=== PATIENT | female | born 1995 | race Caucasian/White ===

== ENCOUNTER 2017-09-24 21:04 | Emergency (ER) | payer OTHER ==
[~2017-09-24] VITALS: Ht 154.9 cm; Wt 55.8 kg
[2017-09-24 21:09] VITALS: TEMP 36.8; Ht 154.9 cm; Wt 55.8 kg
--- NOTE | 2017-09-24 21:27 | EMERGENCY ROOM VISIT NOTE ---
History Report prepared by Michael: Chary Alvarado Under the Supervision of: Dr. Warren Howard D.O. First contact with patient: 21:16 Chief Complaint: URINARY SYMPTOMS Stated Complaint: PAIN,URINATION DISCOMFORT, History of Present Illness The patient is a 22 year old female who presents to the Emergency Room with complaints of constant urinary symptoms beginning this morning. The patient states that she has been having back pain, dysuria, and some pelvic pain. She reports that she has 2 sons that are 4 and 1 year old and she has had 1 miscarriage. She notes that she is currently but has not had her first appointment. The patient reports that her last period was at the end of July. She denies any fever, nausea, vomiting, leg swelling, and vaginal bleeding. Source of History: patient Onset: today Position: other (urinary) Quality: other (dysuria) Timing: constant Associated Symptoms: + abdominal pain, No fevers, No nausea, No vomiting Note: Pt denies leg swelling and vaginal bleeding. Review of Systems See HPI for pertinent positives & negatives. A total of 10 systems reviewed and were otherwise negative. Family History No pertinent family history stated. Social History Smoking Status: Never Smoker Marital Status: Housing Status: lives with family Occupation Status: employed Current/Historical Medications Scheduled Cephalexin Monohydrate (Keflex), 500 MG PO QID Physical Exam Vital Signs Date Time Temp Pulse Resp B/P (MAP) Pulse Ox O2 Delivery O2 Flow Rate FiO2 09/24/17 23:10 91 20 130/81 99 Room Air 09/24/17 21:09 36.8 103 18 123/84 98 Room Air Physical Exam GENERAL: Patient is awake, alert, and in no acute distress. Patient is resting comfortably and showing no signs of anxiety EYES: The conjunctivae are clear. The pupils are round and reactive. EARS, NOSE, MOUTH AND THROAT: The nose is without any evidence of any deformity. Mucous membranes are moist tongue is midline NECK: The neck is nontender and supple. RESPIRATORY: Normal respiratory effort is noted there is no evidence of wheezing rhonchi or rales CARDIOVASCULAR: Regular rate and rhythm noted there no murmurs rubs or gallops normal S1 normal S2 GASTROINTESTINAL: The abdomen is soft. Bowel sounds are present in all quadrants. Abdomen is nontender BACK: No midline tenderness or or step-off noted range of motion in flexion extension as well as rotation no signs of muscle spasm noted MUSCULOSKELETAL/EXTREMITIES: There is no evidence of gross deformity full range of motion is noted in the hips and shoulders SKIN: There is no obvious evidence of any rash. There are no petechiae, pallor or cyanosis noted. NEUROLOGIC: Patient is awake alert and oriented x3 Medical Decision & Procedures ER Provider Diagnostic Interpretation: <14 WKS SINGLE CLINICAL HISTORY: Pain. . COMPARISON STUDY: No previous studies for comparison. TECHNIQUE: Sonography of the pelvis was performed. FINDINGS: Intrauterine gestational sac is noted. This contains a yolk sac that measures 3.5 mm in size. A suspected pole is noted with a crown-rump length of 2.5 mm. Estimated gestational age of 5 weeks and 6 days. Equivocal cardiac activity was identified.. A 1.1 x 0.5 x 1.1 cm suspected subchorionic hematoma was noted. The right ovary was normal. There was a 2.2 cm left ovarian corpus luteal cyst. There was no free fluid. IMPRESSION: 1. Intrauterine gestational sac which contains a yolk sac and suspected pole with equivocal cardiac activity. Estimated gestational age of 5 weeks and 6 days. The findings suggest a normal early intrauterine gestation. Suspected small subchorionic hematoma. Sonographic follow up is recommended. 2. 2.2 cm left ovarian corpus luteal cyst. Electronically signed by: Sami Keating M.D. 09/24/2017 11:10 PM Laboratory Results 09/24/17 21:36 Red Blood Count 4.50, Mean Corpuscular Volume 87.1, Mean Corpuscular Hemoglobin 30.2, Mean Corpuscular Hemoglobin Concent 34.7, Mean Platelet Volume 9.0, Neutrophils (%) (Auto) 58.1, Lymphocytes (%) (Auto) 31.9, Monocytes (%) (Auto) 8.7, Eosinophils (%) (Auto) 0.6, Basophils (%) (Auto) 0.4, Neutrophils # (Auto) 6.05, Lymphocytes # (Auto) 3.31, Monocytes # (Auto) 0.90, Eosinophils # (Auto) 0.06, Basophils # (Auto) 0.04 09/24/17 21:36 Test 09/24/17 21:20 09/24/17 21:36 Urine Color YELLOW Urine Appearance CLEAR (CLEAR) Urine pH 5.0 (4.5-7.5) Urine Specific [place] 1.013 (1.000-1.030) Urine Protein NEG (NEG) Urine Glucose (UA) NEG (NEG) Urine Ketones NEG (NEG) Urine Occult Blood NEG (NEG) Urine Nitrite NEG (NEG) Urine Bilirubin NEG (NEG) Urine Urobilinogen NEG (NEG) Urine Leukocyte Esterase MODERATE (NEG) Urine WBC (Auto) 10-30 /hpf (0-5) Urine RBC (Auto) 0-4 /hpf (0-4) Urine Hyaline Casts (Auto) 0 /lpf (0-5) Urine Epithelial Cells (Auto) 20-30 /lpf (0-5) Urine Bacteria (Auto) NEG (NEG) White Blood Count 10.39 K/uL (4.8-10.8) Red Blood Count 4.50 M/uL (4.2-5.4) Hemoglobin 13.6 g/dL (12.0-16.0) Hematocrit 39.2 % (37-47) Mean Corpuscular Volume 87.1 fL (80-100) Mean Corpuscular Hemoglobin 30.2 pg (25-34) Mean Corpuscular Hemoglobin Concent 34.7 g/dl (32-36) Platelet Count 339 K/uL (130-400) Mean Platelet Volume 9.0 fL (7.4-10.4) Neutrophils (%) (Auto) 58.1 % Lymphocytes (%) (Auto) 31.9 % Monocytes (%) (Auto) 8.7 % Eosinophils (%) (Auto) 0.6 % Basophils (%) (Auto) 0.4 % Neutrophils # (Auto) 6.05 K/uL (1.4-6.5) Lymphocytes # (Auto) 3.31 K/uL (1.2-3.4) Monocytes # (Auto) 0.90 K/uL (0.11-0.59) Eosinophils # (Auto) 0.06 K/uL (0-0.5) Basophils # (Auto) 0.04 K/uL (0-0.2) RDW Standard Deviation 44.2 fL (36.4-46.3) RDW Coefficient of Variation 13.8 % (11.5-14.5) Immature Granulocyte % (Auto) 0.3 % Immature Granulocyte # (Auto) 0.03 K/uL (0.00-0.02) Anion Gap 10.0 mmol/L (3-11) Est Creatinine Clear Calc Drug Dose 116.8 ml/min Estimated GFR () > 150.0 Estimated GFR (Non- 130.5 BUN/Creatinine Ratio 15.7 (10-20) Calcium Level 9.5 mg/dl (8.5-10.1) Total Bilirubin 0.6 mg/dl (0.2-1) Aspartate Amino Transf (AST/SGOT) 12 U/L (15-37) Alanine Aminotransferase (ALT/SGPT) 16 U/L (12-78) Alkaline Phosphatase 70 U/L (45-117) Total Protein 8.0 gm/dl (6.4-8.2) Albumin 4.3 gm/dl (3.4-5.0) Globulin 3.7 gm/dl (2.5-4.0) Albumin/Globulin Ratio 1.2 (0.9-2) Human Chorionic Gonadotropin, Quant 5769 mIU/mL Laboratory results per my review. Medications Administered Medications (Trade) Dose Ordered Sig/Christelle Route Start Time Stop Time Status Last Admin Dose Admin Cephalexin Monohydrate (Keflex 500MG Home Pack) 1 homepack NOW ONCE PO 09/24/17 21:30 09/24/17 21:31 DC 09/24/17 21:50 1 HOMEPACK Cephalexin Monohydrate (Keflex Cap) 500 mg NOW ONCE PO 09/24/17 21:30 09/24/17 21:31 DC 09/24/17 21:50 500 MG ED Course 2115: The patient was evaluated in room B9. A complete history and physical examination were performed. 2129: Keflex Cap 500mg PO, Keflex 500mg Home Pack 1 homepack PO. Medical Decision Differential diagnosis: Etiologies such as ectopic , dysfunction uterine bleeding, bleeding dyscrasia, trauma, infection, as well as others were entertained. Nursing notes reviewed. The patient is a 22-year-old female who presented to emergency department for evaluation of dysuria and frequency. The patient states her last menstrual period was in July. Bedside ultrasound revealed a sac but no definite pull. For this reason a formal ultrasound was ordered as well as laboratory studies. She was found have signs of urinary tract infection on urinalysis and was started on antibiotic. She did not have a physical exam consistent with an acute surgical abdomen. She did not have vaginal bleeding or discharge. I discussed the patient's laboratory and radiographic studies with her. She was encouraged to continue all medications as prescribed and call her primary [facility] physician to schedule follow-up.. Otherwise she was encouraged to return to the emergency department immediately symptoms change worsen or the need arises. Medication Reconcilliation Current Medication List: was personally reviewed by me Blood Pressure Screening Patient's blood pressure: Normal blood pressure Blood pressure disposition: Did not require urgent referral Impression Primary Impression: First trimester Additional Impression: UTI (urinary tract infection) Scribe Attestation The scribe's documentation has been prepared under my direction and personally reviewed by me in its entirety. I confirm that the note above accurately reflects all work, treatment, procedures, and medical decision making performed by me. Departure Information Prescriptions Cephalexin Monohydrate (KEFLEX) 500 Mg Cap 500 MG PO QID, #28 CAP Prov: Warren Howard, DO 09/24/17 Referrals Francis Gates M.D. (PCP) Patient Instructions My [facility] Problem Qualifiers Additional Impression: UTI (urinary tract infection) Urinary tract infection type: site unspecified Hematuria presence: without hematuria Qualified Codes: N39.0 - Urinary tract infection, site not specified
[2017-09-24] MEDS ORDERED: CEPHALEXIN 500MG HOME PACK 1 EA BTL PO ONE (21:30)
[2017-09-24] MEDS ORDERED: CEPHALEXIN MONOHYDRATE 250 MG CAP PO ONE (21:30)
[2017-09-24 21:39] LABS: URINE APPEARANCE CLEAR (CLEAR); URINE BILIRUBIN NEG (NEG); URINE COLOR YELLOW; URINE EPITHELIAL CELL AUTO 20-30 /lpf (0-5); URINE NITRITE NEG (NEG); URINE SPECIFIC GRAVITY 1.013 (1.000-1.030); UROBILINOGEN NEG (NEG)
[2017-09-24 21:41] LABS: MANUAL MICROSCOPIC REQUIRED? NO; REVIEW REQ? NO
[2017-09-24 21:54] LABS: BASO % 0.4 %; BASO ABS # 0.04 K/uL (0-0.2); COMPLETE YES; EOS % 0.6 %; HEMATOCRIT 39.2 % (37-47); IG% 0.3 %; LYMPH % 31.9 %; LYMPH ABS # 3.31 K/uL (1.2-3.4); MEAN CELL VOLUME 87.1 fL (80-100); MEAN CORPUSCULAR HEMOGLOBIN 30.2 pg (25-34); MEAN CORPUSCULAR HGB CONC 34.7 g/dl (32-36); MONO % 8.7 %; NEUT % 58.1 %; PLATELET COUNT 339 K/uL (130-400); WHITE BLOOD COUNT 10.39 K/uL (4.8-10.8)
[2017-09-24 22:12] LABS: ALT/SGPT 16 U/L (12-78); BLOOD UREA NITROGEN 9 mg/dl (7-18); BUN/CREATININE RATIO 15.7 (10-20); CALCIUM 9.5 mg/dl (8.5-10.1); CARBON DIOXIDE 22 mmol/L (21-32); CHLORIDE 104 mmol/L (98-107); CREATININE 0.56 mg/dl (0.60-1.20); GLUCOSE 87 mg/dl (70-99); POTASSIUM 3.3 mmol/L (3.5-5.1); SODIUM 136 mmol/L (136-145)
[2017-09-24 22:15] LABS: ALB/GLOB RATIO 1.2 (0.9-2); ALKALINE PHOSPHATASE 70 U/L (45-117); AST/SGOT 12 U/L (15-37)
[2017-09-24] MEDS ORDERED: CEPH500C2 PO (22:47)
[2017-09-24 23:10] VITALS: BP 130/81; PULSE 91; O2SAT 99
--- NOTE | 2017-09-24 23:12 | DIAGNOSTIC IMAGING REPORT ---
<14 WKS SINGLE CLINICAL HISTORY: Pain. . COMPARISON STUDY: No previous studies for comparison. TECHNIQUE: Sonography of the pelvis was performed. FINDINGS: Intrauterine gestational sac is noted. This contains a yolk sac that measures 3.5 mm in size. A suspected pole is noted with a crown-rump length of 2.5 mm. Estimated gestational age of 5 weeks and 6 days. Equivocal cardiac activity was identified.. A 1.1 x 0.5 x 1.1 cm suspected subchorionic hematoma was noted. The right ovary was normal. There was a 2.2 cm left ovarian corpus luteal cyst. There was no free fluid. IMPRESSION: 1. Intrauterine gestational sac which contains a yolk sac and suspected pole with equivocal cardiac activity. Estimated gestational age of 5 weeks and 6 days. The findings suggest a normal early intrauterine gestation. Suspected small subchorionic hematoma. Sonographic follow up is recommended. 2. 2.2 cm left ovarian corpus luteal cyst. Electronically signed by: Sami Keating M.D. 09/24/2017 11:10 PM Dictated Date/Time: 09/24/2017 11:04 PM
== END 2017-09-24 23:40 | disposition home or self-care (01) ==
LOC: C.EDB 21:06
DX: O23.41 Unspecified infection of urinary tract in pregnancy, first trimester (principal); Z87.59 Personal history of other complications of pregnancy, childbirth and the puerperium

== ENCOUNTER 2021-05-05 07:09 | Inpatient (IN) ==
[2021-05-05] MEDS ORDERED: OXYTOCIN 30 UNITS/500 ML BAG IV PRN ×2 (07:41)
[2021-05-05] MEDS: LACTATED RINGER'S 1,000 ML IV PRN ×5 (07:57→22:23)
[2021-05-05] MEDS ORDERED: ePHEDrine sulfate 50 MG/ML AMP ONE (08:02)
[2021-05-05] MEDS ORDERED: fentaNYL citrate 100 MCG/2 ML VIAL ONE (08:02)
[2021-05-05] MEDS ORDERED: SODIUM CHLORIDE 0.9% INJ 10 ML VIAL ONE (08:02)
[2021-05-05] MEDS ORDERED: BUPIVACAINE 0.25% 30 ML VIAL ONE (08:02)
[2021-05-05] MEDS ORDERED: fentaNYL 2MCG/ML ROPIVACAINE 1.25MG/ML 100 ML BAG EPI ONE (08:03)
--- NOTE | 2021-05-05 08:10 | History & Physical Report ---
Date of Service May 05, 2021 Assessment & Plan (1) Encounter for supervision of normal in multigravida, antepartum: Plan: Patient is stable, doing well -NPO, except ice chips -IV (LR, pit, epidural) as needed -FHTs -review CBC results -Rh+, RI, GBS- -anticipate (2) Encounter for anatomic survey: Admission and Anticipated Discharge Date Admission Date: May 05, 2021 History of Present Illness Primary Care Provider: NO PCP Aiyana Mendez is a 25 y/o female currently at 40.4 WGA with an SHARI 05/01/21 as determined by LMP who is here for IOL for postterm . Her is complicated by a history of anemia and pelvic separation during her previous . + contractions; + movement; no fluid loss; no bloody show Had regular appointments with OB. Labs: today Blood type: O Positive Antibody screen: negative H.9 Hct: 38.5 WBC: 10.9 Plt: 188 Rubella: immune VDRL/RPR: nonreactive Gonorrhea: negative Chlamydia: negative HIV: negative HbSAg: negative GBS: negative Other screens: cff-DNA: negative CF: declined SMA: declined Allergies Allergy/AdvReac Type Severity Reaction Status Date / Time No Known Allergies Allergy Verified 05/05/21 07:53 Home Medications Medication Instructions Recorded Confirmed Type prenat.vits,moose,fhk-ecgg-ntjmb 1 tab PO DAILY 09/15/20 05/05/21 History Patient History Medical History Ovarian cyst resolved Surgical History S/P tonsillectomy and adenoidectomy Family History Aunt Colorectal cancer Other Asthma Heart disease Denies family history of Ovarian cancer Breast cancer Social History Smoking Status: Never smoker Second Hand Exposure: No; Hx Alcohol Use: No Hx Substance Use: No Preferred Language: Albanian Communication Ability: Effective Beliefs That Will Affect Care: None marital status: marital status details: Ernesto (33) [phone] Current Living Situation: Family Current Living Situation Comment: and 2 boys current occupational status: employed current occupation: [employer] Feels Safe at Home: Yes Safety Concerns: Feels Safe At This Time Assistive Devices: None Review of Systems All systems reviewed & are unremarkable except as noted in HPI & below Physical Exam Physical Exam: General: Alert, oriented. No acute distress. Cardiac: Regular rate and rhythm, no murmurs/rubs/gallops. Respiratory: Clear to auscultation bilaterally a/p, no wheezes/rales/rhonchi. No increased work of breathing. Symmetrical chest rise. No respiratory distress. Pelvic: Dilation 4 cm; Effacement 50; Station -[address] Amaya Lower Extremities: No lower extremity edema or swelling. No deep calf pain. Zaki's negative bilaterally Results & Data ([facility]) Vital Signs (Past 12 Hours) Vital Signs Temp Pulse Resp BP 05/05/21 07:32 36.5 C 20 05/05/21 07:24 85 99/62 L Resident Activity Tracking Resident Involvement: Resident Care Provided Care Provided: OB Delivery
[2021-05-05 08:19] LABS: Hematocrit (blood only) 38.5 % (37-47); Hemoglobin 12.9 g/dL (12.0-16.0); Mean Corpuscular Hemoglobin 32.1 pg (25-34); Mean Corpuscular Hgb Conc 33.5 g/dL (32-36); Mean Corpuscular Volume 95.8 fL (80-100); Mean Platelet Volume 10.7 fL (7.4-10.4); Platelet Count 188 K/uL (130-400); RDW Standard Deviation 48.9 fL (36.4-46.3); Red Blood Count 4.02 M/uL (4.2-5.4)
[2021-05-05] MEDS ORDERED: diphenhydrAMINE 50 MG/ML VIAL IV PRN ×2 (09:42→18:54)
[2021-05-05] MEDS ORDERED: ePHEDrine sulfate 50 MG/ML AMP IV PRN ×2 (09:42→18:54)
[2021-05-05] MEDS ORDERED: NALOXONE HCL 0.4 MG/1 ML VIAL/CARP IV PRN ×2 (09:42→18:54)
[2021-05-05] MEDS ORDERED: ONDANSETRON INJ 2 MG/ML 2 ML VIAL IV PRN ×2 (09:42→18:54)
[2021-05-05] MEDS ORDERED: PROMETHAZINE HCL 6.25 MG in SODIUM CHLORIDE 0.9% 50 ML IV PRN ×2 (09:42→18:54)
[2021-05-05] MEDS ORDERED: NALBUPHINE HCL INJ 10 MG/ML AMP IV PRN ×2 (09:42→18:54)
[2021-05-05] MEDS ORDERED: NALOXONE HCL 1 MG in SODIUM CHLORIDE 0.9% 1000ML 1,000 ML IV PRN ×2 (09:42→18:54)
--- NOTE | 2021-05-05 09:42 | Anesthesiology Consultation ---
Date of Service May 05, 2021 Assessment & Plan (1) Encounter for pre-operative examination: Chart Review Chart Review: Patient NOT seen in Pre Admission Testing and Acceptable Risk for Labor Epidural Consults Requested none ASA ASA2 Proposed Anesthesia Anesthesia Type: Labor Epidural Risk / Benefits Reviewed With: PT / POA / Parent / Guardian, Accepts Plan and Informed Consent Obtained History Height/Weight Height: 5 ft Weight: 63.503 kg Allergies Allergy/AdvReac Type Severity Reaction Status Date / Time No Known Allergies Allergy Verified 05/05/21 07:53 Medications Home Medications Medication Instructions Recorded Confirmed Last Taken prenat.vits,moose,mdg-mfeh-eemql 1 tab PO DAILY 09/15/20 05/05/21 05/04/21 20:00 Active Medications Generic Name Dose Route Start Last Admin Trade Name Freq PRN Reason Stop Dose Admin Lactated Ringer's 1,000 mls @ 125 mls/hr 05/05/21 07:41 05/05/21 08:29 Lr IV 05/07/21 07:40 125 mls/hr .Q8H PRN Infusion L&D Protocol Protocol NPO Date Last Intake of Fluids: 05/05/21 Time Last Intake of Fluids: 06:00 Date Last Intake of Solids: 05/05/21 Time Last Intake of Solids: 06:00 Last Intake of Solids Comment: poptart Past Medical History Medical History Ovarian cyst resolved Exercise / Class Metabolic Activity II 4-5 Yardwork/Stairs/Walk up hill Past Family History Family History Aunt Colorectal cancer Other Asthma Heart disease Denies family history of Ovarian cancer Breast cancer Past Surgical History Surgical History S/P tonsillectomy and adenoidectomy Past Anesthesia History No Hx of Anesthesia Complications and No Family Hx of Anesthesia Complications History of PONV No Hx of PONV and No Hx of Motion Sickness Social History Smoking Status: Never smoker Hx Alcohol Use: No Hx Substance Use: No substance use type: does not use Physical Exam Vital Signs Last Vital Signs Temp 36.5 C 05/05/21 07:32 Pulse 100 H 05/05/21 09:39 Resp 20 05/05/21 07:32 BP 87/58 L 05/05/21 09:39 Pulse Ox 99 05/05/21 09:38 ENMT Mouth: no dentition abnormality Thyromental Distance: > or= 3.5 Finger Breadths Mallampati Class: II Neck normal visual inspection Respiratory normal respiratory effort Auscultation: lungs clear to auscultation bilaterally Cardiovascular Rate/Rhythm: regular rate and regular rhythm Psychiatric Orientation: alert Testing Laboratory Results 05/05/21 07:55
--- NOTE | 2021-05-05 10:46 | Labor Progress Brief Note ---
Date of Service May 05, 2021 Subjective Reason For Note: Routine Evaluation Comfortable with Epidural Assessment & Plan Admission and Anticipated Discharge Date Admission Date: May 05, 2021 Physical Exam Genitourinary: Manual OB Exam: + cervical dilation 5 cm, + cervical effacement 50%, + station -2 and + amniotic fluid clear OB Exam Monitor Tracing: + category I Results & Data ([facility]) Vital Signs (Past 12 Hours) Vital Signs Temp Pulse Resp BP Pulse Ox 05/05/21 10:43 120 H 100 05/05/21 10:42 104 H 87/57 L 05/05/21 10:38 86 100 05/05/21 10:37 84 107/66 05/05/21 10:33 68 99 05/05/21 10:32 91 H 92/60 L 05/05/21 10:28 92 H 99 05/05/21 10:25 88 97/64 L 05/05/21 10:23 93 H 99 05/05/21 10:20 78 99/62 L 05/05/21 10:18 102 H 98/61 L 100 05/05/21 10:13 100 H 96 05/05/21 10:10 110 H 95/64 L 05/05/21 10:08 74 100 05/05/21 10:07 83 102/66 05/05/21 10:03 103 H 98 05/05/21 10:01 99 H 93/61 L 05/05/21 09:58 100 H 98 05/05/21 09:56 93 H 99/59 L 05/05/21 09:53 108 H 110/68 99 05/05/21 09:51 73 114/78 05/05/21 09:49 200 H 97/68 L 05/05/21 09:48 75 100 05/05/21 09:47 106 H 98/72 L 05/05/21 09:45 126 H 91/57 L 05/05/21 09:44 104 H 100/61 05/05/21 09:43 102 H 97 05/05/21 09:42 106 H 89/62 L 05/05/21 09:41 110 H 87/59 L 05/05/21 09:39 100 H 87/58 L 05/05/21 09:38 96 H 99 05/05/21 09:37 100 H 90/55 L 05/05/21 09:36 75 95/61 L 05/05/21 09:33 95 H 99 05/05/21 09:32 87 105/71 05/05/21 09:28 79 99 05/05/21 09:24 76 112/74 05/05/21 09:23 83 100 05/05/21 07:32 97.7 F 20 05/05/21 07:24 85 99/62 L Coding Level of Care Code None
[2021-05-05] MEDS ORDERED: TERBUTALINE SULFATE 1 MG/ML VIAL ONE (11:00)
--- NOTE | 2021-05-05 11:41 | Labor Progress Brief Note ---
Date of Service May 05, 2021 Subjective Comfortable with epidural. Patient was seen and examined urgently, due to heart rate deceleration, which the nurses notified me of by phone while I was in my call room on 4N. Pit off, FMO2 on, RN's repositioning patient, bolus going, recent ephedrine had been given. Patient in L lateral on my arrival. FHT 60-70 x5min Small bloody show, Clear LOF continues to be copious. Exam /-2 Alongside head, a hand was encountered. With manipulation, it was noted to retract back into the uterus and the head seated firmly against the cervix once more. At no point was cord palpable. FSE placed without difficulty and confirmed FHT 60-70. Fuentes placed, OR ordered to be opened. Patient placed in knee chest and terbutaline 0.25mg given subcutaneously. Verbal consent for obtained from patient and FOB heart tones noted to begin improving Reassuring variability persisted as tones gradually john from 90s, low 100s, and ultimately settled in 150s. Patient repositioned L lateral and FHT remain Cat 1 OR cancelled Paper consent for completed in the event of future need, and to allow time for all questions / full unhurried consent process. Plan for NST and if remains reassuring can resume induction. Assessment & Plan Admission and Anticipated Discharge Date Admission Date: May 05, 2021 Results & Data ([facility]) Vital Signs (Past 12 Hours) Vital Signs Temp Pulse Resp BP Pulse Ox 05/05/21 11:31 123 H 96/54 L 05/05/21 11:28 114 H 100 05/05/21 11:24 107 H 95/53 L 05/05/21 11:23 96 H 100 05/05/21 11:18 131 H 100 05/05/21 11:13 129 H 103/54 L 100 05/05/21 11:08 110 H 99 05/05/21 11:06 126 H 89 L 05/05/21 11:03 128 H 91 05/05/21 11:02 88 128/70 05/05/21 10:59 90 90 05/05/21 10:58 86 100 05/05/21 10:57 85 126/59 L 05/05/21 10:53 82 100 05/05/21 10:51 72 139/78 05/05/21 10:49 64 126/81 07 10:48 64 100 05/05/21 10:46 62 93/66 L 05/05/21 10:43 120 H 100 05/05/21 10:42 104 H 87/57 L 05/05/21 10:38 86 100 05/05/21 10:37 84 107/66 05/05/21 10:33 68 99 05/05/21 10:32 91 H 92/60 L 05/05/21 10:28 92 H 99 05/05/21 10:25 88 97/64 L 05/05/21 10:23 93 H 99 05/05/21 10:20 78 99/62 L 05/05/21 10:18 102 H 98/61 L 100 05/05/21 10:13 100 H 96 05/05/21 10:10 110 H 95/64 L 05/05/21 10:08 74 100 05/05/21 10:07 83 102/66 05/05/21 10:03 103 H 98 05/05/21 10:01 99 H 93/61 L 05/05/21 09:58 100 H 98 05/05/21 09:56 93 H 99/59 L 05/05/21 09:53 108 H 110/68 99 05/05/21 09:51 73 114/78 05/05/21 09:49 200 H 97/68 L 05/05/21 09:48 75 100 05/05/21 09:47 106 H 98/72 L 05/05/21 09:45 126 H 91/57 L 05/05/21 09:44 104 H 100/61 05/05/21 09:43 102 H 97 05/05/21 09:42 106 H 89/62 L 05/05/21 09:41 110 H 87/59 L 05/05/21 09:39 100 H 87/58 L 05/05/21 09:38 96 H 99 05/05/21 09:37 100 H 90/55 L 05/05/21 09:36 75 95/61 L 05/05/21 09:33 95 H 99 05/05/21 09:32 87 105/71 05/05/21 09:28 79 99 05/05/21 09:24 76 112/74 05/05/21 09:23 83 100 05/05/21 07:32 97.7 F 20 05/05/21 07:24 85 99/62 L Coding Level of Care Code None
[2021-05-05] MEDS ORDERED: ACETAMINOPHEN 650 MG SUPP ONE (16:39)
--- NOTE | 2021-05-05 16:45 | Labor Progress Brief Note ---
Date of Service May 05, 2021 Subjective Feeling pressure, urge to push Assessment & Plan (1) Chorioamnionitis: Plan: Start unasyn, tylenol given, moving rapidly now towards delivery in multiparous female Admission and Anticipated Discharge Date Admission Date: May 05, 2021 Physical Exam Physical Exam: Shivers FHT 165, mod destinee, +early decels -acc [place] Q2 Cvx 9/100/+1 Temp 102F Rectal tylenol 650mg given after cervical exam Results & Data ([facility]) Vital Signs (Past 12 Hours) Vital Signs Temp Pulse Resp BP Pulse Ox 05/05/21 16:38 110 H 99 05/05/21 16:36 102.0 F H 05/05/21 16:34 101.7 F H 05/05/21 16:33 101 H 100 05/05/21 16:32 104 H 119/69 05/05/21 16:30 22 05/05/21 16:28 108 H 100 05/05/21 16:27 104 H 90 05/05/21 16:23 112 H 95 05/05/21 16:21 118 H 92 05/05/21 16:18 111 H 100 05/05/21 16:16 102 H 117/76 05/05/21 16:13 101 H 99 05/05/21 16:08 104 H 100 05/05/21 16:03 108 H 99 05/05/21 16:02 123 H 113/71 05/05/21 15:58 125 H 100 05/05/21 15:53 126 H 98 05/05/21 15:48 90 100 05/05/21 15:46 122 H 95/52 L 05/05/21 15:43 115 H 100 05/05/21 15:39 103 H 100/59 L 05/05/21 15:38 96 H 100 05/05/21 15:37 127 H 84/53 L 05/05/21 15:33 82 99 05/05/21 15:31 107 H 87/50 L 05/05/21 15:30 16 05/05/21 15:28 112 H 99 05/05/21 15:23 84 99 05/05/21 15:18 96 H 99 05/05/21 15:17 102 H 91/51 L 05/05/21 15:13 116 H 99 05/05/21 15:10 98.8 F 16 05/05/21 15:08 80 99 05/05/21 15:03 83 99 05/05/21 15:02 95 H 91/53 L 05/05/21 14:58 79 100 05/05/21 14:53 104 H 99 05/05/21 14:48 82 100 05/05/21 14:46 112 H 95/56 L 05/05/21 14:45 103 H 94 05/05/21 14:43 97 H 99 05/05/21 14:38 96 H 100 05/05/21 14:33 97 H 99 05/05/21 14:32 105 H 106/66 05/05/21 14:31 20 05/05/21 14:28 102 H 99 05/05/21 14:23 111 H 100 05/05/21 14:18 107 H 99 05/05/21 14:16 114 H 95/61 L 05/05/21 14:13 113 H 100 05/05/21 14:08 107 H 99 05/05/21 14:03 115 H 100 05/05/21 14:01 114 H 20 98/64 L 05/05/21 13:58 128 H 100 05/05/21 13:53 114 H 100 05/05/21 13:48 92 H 100 05/05/21 13:46 118 H 93/59 L 05/05/21 13:43 103 H 100 05/05/21 13:38 111 H 99 05/05/21 13:33 109 H 100 05/05/21 13:31 115 H 101/62 05/05/21 13:28 106 H 100 05/05/21 13:23 111 H 100 05/05/21 13:18 101 H 100 05/05/21 13:17 109 H 102/67 05/05/21 13:13 127 H 100 05/05/21 13:08 100 H 100 05/05/21 13:03 120 H 100 05/05/21 13:01 113 H 20 92/63 L 05/05/21 12:58 89 100 05/05/21 12:53 115 H 100 05/05/21 12:48 125 H 100 05/05/21 12:47 110 H 101/68 05/05/21 12:43 114 H 100 05/05/21 12:38 108 H 100 05/05/21 12:33 121 H 100 05/05/21 12:31 97.9 F 123 H 20 88/52 L 05/05/21 12:28 126 H 100 05/05/21 12:23 96 H 100 05/05/21 12:18 144 H 100 05/05/21 12:16 126 H 81/49 L 05/05/21 12:13 116 H 100 05/05/21 12:08 122 H 100 05/05/21 12:03 97 H 100 05/05/21 12:02 120 H 86/52 L 05/05/21 12:01 97.9 F 16 05/05/21 11:58 118 H 100 05/05/21 11:53 92 H 100 05/05/21 11:48 125 H 100 05/05/21 11:47 106 H 93/55 L 05/05/21 11:46 20 05/05/21 11:43 115 H 100 05/05/21 11:38 103 H 100 05/05/21 11:33 116 H 100 05/05/21 11:31 123 H 20 96/54 L 05/05/21 11:28 114 H 100 05/05/21 11:24 107 H 95/53 L 05/05/21 11:23 96 H 100 05/05/21 11:18 131 H 100 05/05/21 11:16 20 05/05/21 11:13 129 H 103/54 L 100 05/05/21 11:08 110 H 99 05/05/21 11:06 126 H 89 L 05/05/21 11:03 128 H 91 05/05/21 11:02 88 128/70 05/05/21 11:01 20 05/05/21 10:59 90 90 05/05/21 10:58 86 100 05/05/21 10:57 85 126/59 L 05/05/21 10:53 82 100 05/05/21 10:51 72 139/78 05/05/21 10:49 64 126/81 05/05/21 10:48 64 100 05/05/21 10:46 62 20 93/66 L 05/05/21 10:43 120 H 100 05/05/21 10:42 104 H 87/57 L 05/05/21 10:38 86 100 05/05/21 10:37 84 107/66 05/05/21 10:33 68 99 05/05/21 10:32 91 H 92/60 L 05/05/21 10:31 20 05/05/21 10:28 92 H 99 05/05/21 10:25 88 97/64 L 05/05/21 10:23 93 H 99 05/05/21 10:20 78 99/62 L 05/05/21 10:18 102 H 98/61 L 100 05/05/21 10:16 97.9 F 20 05/05/21 10:13 100 H 96 05/05/21 10:10 110 H 95/64 L 05/05/21 10:08 74 100 05/05/21 10:07 83 102/66 05/05/21 10:03 103 H 98 05/05/21 10:01 99 H 20 93/61 L 05/05/21 09:58 100 H 98 05/05/21 09:56 93 H 99/59 L 05/05/21 09:53 108 H 110/68 99 05/05/21 09:51 73 114/78 05/05/21 09:49 200 H 97/68 L 05/05/21 09:48 75 100 05/05/21 09:47 106 H 98/72 L 05/05/21 09:45 126 H 20 91/57 L 05/05/21 09:44 104 H 100/61 05/05/21 09:43 102 H 97 05/05/21 09:42 106 H 89/62 L 05/05/21 09:41 110 H 87/59 L 05/05/21 09:39 100 H 87/58 L 05/05/21 09:38 96 H 99 05/05/21 09:37 100 H 90/55 L 05/05/21 09:36 75 95/61 L 05/05/21 09:33 95 H 99 05/05/21 09:32 87 105/71 05/05/21 09:28 79 99 05/05/21 09:24 76 112/74 05/05/21 09:23 83 100 05/05/21 07:32 97.7 F 20 05/05/21 07:24 85 99/62 L Coding Level of Care Code None Diagnoses Chorioamnionitis O41.1290
[2021-05-05] MEDS ORDERED: AMPICILLIN/SULBACTAM SOD 3,000 MG in 0.9 % SODIUM CHLORIDE 100 ML IV ONE (17:00)
[2021-05-05] MEDS ORDERED: IBUPROFEN 600 MG TAB PO ONE (17:53)
--- NOTE | 2021-05-05 18:13 | Delivery Summary ---
Vaginal Delivery Summary Date of Service May 05, 2021 Vaginal Delivery Summary DIAGNOSES: 1. [place] intrauterine at 40w4d gestation. 2. Induction of Labor. 3. Group B Streptococcus Neg 4. Acute Chorioamnionitis. PROCEDURE: Spontaneous vaginal delivery complicated by mild shoulder dystocia, without laceration. SURGEON: Sangeetha Jennings MD. SOFTWARE VALIDATION ENGINEER: None. ESTIMATED BLOOD LOSS: 300 mL. COMPLICATIONS: Mild Dystocia. PLACENTA: Spontaneous and intact with a 3-vessel cord. DISPOSITION: Stable to labor and delivery. DESCRIPTION: The patient pushed well and brought the head to in CHRISTIN position. The 's head was allowed to deliver with contraction force and no further active pushing, with the perineum protected during this time. There was a tight nuchal cord reduced on the perineum. The right shoulder was anterior. The shoulders did not deliver with the next push, so mom was placed in Aviva position, coached through several additional pushes while suprapubic pressure was applied, and still the shoulder did not deliver, however the infant was noted to begin rotating. This rotation was encouraged, creating a screw maneuver, and ultimately delivered after 360 degrees of rotation. The cord was doubly clamped by the MD and then cut by the FOB. The placenta delivered spontaneously and was noted to be intact and with a 3VC. The cervix, vagina and perineum were examined and were found to be without defect requiring repair. The fundus was firm and lochia minimal immediately after delivery. [facility] Vaginal Delivery Charge Vaginal Delivery Codes: 17224 global code for the antepartum, delivery, and post-
[2021-05-05] MEDS ORDERED: miSOPROStoL 200 MCG TAB ONE (18:20)
[2021-05-05] MEDS ORDERED: oxyCODONE/ACETAMINOPHEN 5mg/325mg TAB PO ONE (18:21)
--- NOTE | 2021-05-05 18:28 | Communication Note ---
Date of Service: May 05, 2021 Patient having heavy lochia, I was called from nursing station back to her room. Chux under patient being removed with large blood, and fresh chux being placed. On exam, fundus 2cm above umbilicus, bimanual massage reveals another 100cc clot and firms fundus to 1 below umb. Total chux weight c/w 550cc additional total losses. Dilute pit running at 999ml/hr. Second IV site requested, stat H&H requested, and fresh chux / peripad placed. BP 120/56 pulse 114. Patient anxious and very painful with exam. Offered percocet, she accepts. Misoprostol 800mcg placed rectally. Fundus firm and lochia small when I returned to nursing station to document.
[2021-05-05 18:30] LABS: Hematocrit (blood only) 34.5 % (37-47); Hemoglobin 11.8 g/dL (12.0-16.0)
[2021-05-05] MEDS: fentaNYL 2MCG/ML ROPIVACAINE 1.25MG/ML 100 ML BAG EPI PRN ×2 (18:45→23:09)
--- NOTE | 2021-05-05 18:45 | Communication Note ---
Date of Service: May 05, 2021 I was called back to room for additional bleeding. Rosmery weighed, additional loss 320. Therefore total now 300 at delivery + 500cc + 320cc= 1120cc Patient c/o pelvic pressure, fundus tilted to R on exam. Fisher placed, drained 1000cc immediately. Pressure sensation relieved, bleeding slowed. I left room to go document and was immediately called back for additional bleeding. Rosmery weighed again for another 425cc = total 1545cc. Stat HGB now resulted, 11.8mg/dl (drawn right around the time we hit 1120cc loss) Patient currently feeling fine, lying supine. Good color to face, BP 109/64, P 108. Continues with fisher insitu. Giving hemabate now. Also turning epidural back on and will place Bakri, and plan to leave epidural / Bakri / Fisher overnight. Anesthesia (Cherie) aware of plan and in agreement. Unasyn continues for 24hours.
[2021-05-05] MEDS ORDERED: HYDROCORTISONE ACETATE 25 MG SUPP PR PRN (18:46)
[2021-05-05] MEDS ORDERED: ACETAMINOPHEN 325 MG TAB PO PRN (18:46)
[2021-05-05] MEDS ORDERED: SUPERCREAM 0.870% 15 GM JAR EXT PRN (18:46)
[2021-05-05] MEDS ORDERED: BENZOCAINE 20% AER SPR 82.5 GM CAN EXT PRN (18:46)
[2021-05-05] MEDS ORDERED: DIPHTHERIA/TETANUS/PERTUSSIS 0.5 ML SYR/VIAL IM ONE (18:46)
[2021-05-05] MEDS ORDERED: MoRPHine SULFATE 2 MG/ML CARP IV PRN (18:57)
--- NOTE | 2021-05-05 19:09 | Communication Note ---
Date of Service: May 05, 2021 Bakri placed, insufflated to 480cc sterile water, connected to fisher bag. Chux under patient weighed after placement, as inflation of Bakri displaced significant additional clot from uterus; new clot weighed at 450cc. Total EBL now 2000cc for delivery. After placement, Bakri not draining additional blood, uterus firm, fundus -1 from Umb. Vitals remain 114/76, pulse 115, clinically patient has good color and feels well. Pain in abdomen with cramping continues, percocet given and epidural being reactivated with approval of Dr. Crespo. He also offered order of IV Morphine for breakthrough but was not aware patient had been given percocet at my order; I discussed with him by phone, after I heard Hailey HERNANDEZ inform the patient that "pain meds had been ordered for her," and I asked her if that was the percocet, and she said no that Cherie had ordered morphine, so I told the nurses at bedside not to give morphine and that I would speak with Cherie. We discussed, we are both happy for patient to receive a narcotic for breakthrough, but need to avoid overdosing / polypharmacy, especially given acute blood loss and potential hemodynamic instability. Percocet is agreed upon as the agent for breakthrough pain as it was already given.
[2021-05-05] MEDS ORDERED: SODIUM CHLORIDE 0.9% 250 ML IV PRN ×2 (19:10→20:44)
[2021-05-05] MEDS: DOCUSATE SODIUM 100 MG CAP PO SCH (19:41)
[2021-05-05] MEDS ORDERED: CARBOPROST TROMETHAMINE 250 MCG/ML AMPUL IM ONE (20:10)
[2021-05-05 20:26] LABS: Hematocrit (blood only) 32.1 % (37-47)
--- NOTE | 2021-05-05 20:34 | Communication Note ---
Date of Service: May 05, 2021 Patient has been struggling with pain management, and what appears to be a bit of panic / anxiety, after a very trying few hours. She has been voicing frus tration "it's one thing after another!" "I just want to go home, I want my boys, I want to hold my baby!" all of which is very understandable. At times she is shouting, immediately after which she will be calm and evidence a sense of humor. She is experiencing a lot of painful cramping with the Bakri, and this manifests as low back pain as well. She has the epidural in place and running, also had percocet by mouth, but pain management is proving difficult. It is possible this is in part due to her high levels of emotional distress, and efforts have been ongoing to help soothe and calm her. Heating pad and motrin have also been provided. She was further offered phenergan in hopes of providing mild sedation, as she was offered but declined a dose of anti-anxiety medication (she did not want to risk this passing through breastmilk). Additional narcotics are risky as hemodynamic instability is a concern. Additional blood loss in the first hour after Bakri placement is measured at 4 75cc. Fundus remains firm. BP 108/70, Pulse 127, patient has c/o feeling "I think I need oxygen" and was offered FM02 but when nurse told me this I also asked for another stat H&H which is now pending. I am concerned this represents symptom of acute blood loss anemia and it may be time to begin transfusing. It could also be more r/t her anxiety, and resp rate is somewhat elevated, but I do not want to assume that. Of note, pulse ox never went below 92% and was almost always 97 or above on room air. She is 99 to 100% on 2L o2. She is noticeably more calm and comfortable when observed from outside her room, ie when she does not know staff are present, contributing to my suspicion that to some extent she is experiencing stress response from each of the "events" when we have had to come into the room and perform painful/upsetting procedures. H&H is now resulted at 11 as I am typing this note, after measured blood loss of 2500cc. I find this hard to believe and think it has likely not equilibrated. BP is now 97/63 and pulse 129. Will transfuse 2u as I think by the time we see her H&H reflect the true loss we will be dangerously behind. I called the blood bank and spoke to Shantel, explaining the rationale for ordering the transfusion despite the relatively normal-appearing hemoglobin value. She expressed agreement and readiness to send units up.
[2021-05-05] MEDS ORDERED: oxyCODONE/ACETAMINOPHEN 10-325 TAB PO STA (20:59)
[2021-05-05] MEDS: oxyCODONE/ACETAMINOPHEN 5mg/325mg TAB PO PRN (21:03)
--- NOTE | 2021-05-05 21:53 | Communication Note ---
Date of Service: May 05, 2021 Delayed document due to patient care. I spoke with patient and FOB in their room prior to blood transfusion, confirming consent for transfusion and discuss ing rationale. Patient is still c/o cramping but is also able to rest on her R side, drink water, close her eyes and begin to nap, appears much more comfortable. FOB shares that he thinks the benadryl she received to help with sedation (she declined phenergan and preferred benadryl) made a huge difference in her overall comfort level. We discussed that some degree of cramping is normal until the Bakri is removed. Bakri bag has trace blood in it, non-measurably small amount. RN Fransisca recently drained 20cc, she tells me, which would be output for the prior hour. Fuentes has 50cc in it currently, and was also just drained minutes ago for an additional volume of 75cc in the prior hour. A chux from under the patient was removed with my help, and I weighed it for 125cc, but this is more than 1 hour as the patient had been asking that she not be made to reposition so it could be changed. Thus the rate of loss is significantly slowing, urine output remains adequate, and vitals are 95/61 and P123 with sat 100% on RA now. Two units pRBC transfusion starting now. Will recheck H&H after these units are completed. Patient and FOB aware of estimated total losses approximating 2500cc at this time. Will continue very close observation along with transfusion. Q30min vitals and strict hourly I/O continue, as ordered at the bedside verbally to Fransisca RN during management of PPH.
[2021-05-05] MEDS: AMPICILLIN/SULBACTAM SOD 1,500 MG in 0.9 % SODIUM CHLORIDE 100 ML IV SCH (22:31)
[2021-05-05 23:09] LABS: Base Excess Cord Arterial Bld -6.9 mEq/L (-9-1.8); Base Excess Cord Venous Blood -3.2 mEq/L (-7.7-1.9); CO2 Cord Arterial Blood 61 mmHg (39.1-73.5); Cord Venous Blood HCO3 22 mmol/L (18.4-26.8); Cord Venous Blood PCO2 39 mmHg (30.4-57.2); Cord Venous Blood PO2 26 mmHg (14.1-43.3); Cord Venous Blood pH 7.37 (7.20-7.44); HCO3 Cord Arterial Blood 23 mmol/L (19.7-28.5); PO2 Cord Arterial Blood 13 mmHg (4.1-31.7); pH Cord Arterial Blood 7.18 (7.1-7.38)
[2021-05-05 23:10] LABS: O2 Saturation Cord Venous Bld < 60.0 % (<68); Oxygen Sat Cord Arterial Blood < 60.0 % (<60)
[2021-05-05] MEDS: IBUPROFEN 600 MG TAB PO PRN (23:27)
[2021-05-06] MEDS ORDERED: SODIUM CHLORIDE 0.9% INJ 10 ML VIAL ONE (00:06)
[2021-05-06] MEDS ORDERED: BUPIVACAINE 0.25% 30 ML VIAL ONE (00:06)
[2021-05-06] MEDS ORDERED: NURSING L&D Epidural Breakthrough Pain Update ONE (00:55)
[2021-05-06] MEDS: LACTATED RINGER'S 1,000 ML IV PRN ×2 (01:06→08:46)
[2021-05-06] MEDS: HYDROmorphone INJ 0.5 MG/0.5 ML SYR IV PRN ×2 (01:14→02:10)
[2021-05-06 03:27] LABS: Hematocrit (blood only) 30.2 % (37-47); Hemoglobin 10.4 g/dL (12.0-16.0); Mean Corpuscular Hemoglobin 31.5 pg (25-34); Mean Corpuscular Hgb Conc 34.4 g/dL (32-36); Mean Corpuscular Volume 91.5 fL (80-100); Mean Platelet Volume 9.9 fL (7.4-10.4); Platelet Count 113 K/uL (130-400); RDW Coefficient of Variation 14.5 % (11.5-14.5); RDW Standard Deviation 48.3 fL (36.4-46.3); White Blood Count 22.28 K/uL (4.8-10.8)
--- NOTE | 2021-05-06 03:40 | Communication Note ---
Date of Service: May 06, 2021 Patient feeling much better, IV dilaudid has been effective per RN. Pulse now 76 after 2u pRBC. Hgb 10.4, Plt 113 at 0300 this morning. Further CBC this AM at 0600. Anticipate further drops, but clinically patient showing good improvement from 2u thus far and plts acceptable. At this time her bleeding has tapered to trace levels, urine output remains adequate, observation continues; will decrease vitals to hourly and fundal checks to Q2hr to enable rest. Keep at clear liquids and may advance diet in AM.
[2021-05-06] MEDS: IBUPROFEN 600 MG TAB PO PRN ×5 (04:11→22:11)
[2021-05-06] MEDS: fentaNYL 2MCG/ML ROPIVACAINE 1.25MG/ML 100 ML BAG EPI PRN ×2 (04:14→07:56)
[2021-05-06] MEDS: AMPICILLIN/SULBACTAM SOD 1,500 MG in 0.9 % SODIUM CHLORIDE 100 ML IV SCH ×2 (04:41→11:02)
--- NOTE | 2021-05-06 06:13 | Obstetrical Progress Note ---
Date of Service <Lexy Ewing MD - Last Filed: 05/06/21 08:16> May 06, 2021 Assessment & Plan <Lexy Ewing MD - Last Filed: 05/06/21 08:16> (1) Encounter for care and examination after delivery: Patient is stable, bed-bound due to fisher, bakri and IV repletion -bleeding is much improved -IV repletion as needed -chorioamnionitis managed w/ IV unasyn 1500 mg till 11 AM -fisher, bakri still in -remove 120 cc/hr from bakri (~4hr). remove fisher after bakri is out -pain control as needed -bottle feeding -transfer to recovery wing once bakri is out -Rh+, RI, GBS- (2) Chorioamnionitis: (3) Encounter for supervision of normal in multigravida, antepartum: <Sangeetha Jennings MD - Last Filed: 05/06/21 08:23> (1) Encounter for care and examination after delivery: (2) Chorioamnionitis: (3) Encounter for supervision of normal in multiavida, antepartum: Subjective <Lexy Ewing MD - Last Filed: 05/06/21 08:16> 25y/o female who is now PPD #1 following spontaneous vaginal delivery at 40.4 weeks. Delivery was complicated by chorioamnionitis and pph, as well as a history of anemia and pelvic separation from a previous . Reports feeling well overall this morning. + abdominal cramping & 6/10 pain well managed on analgesics. Voiding into Fisher catheter. Tolerating meals well and able to ambulate some. + passing gas but no bowel movements. Lochia has improved some this morning. Bottle feeding but plans to transition to breast as soon as she is able.. Review of Systems + fever yesterday evening but has not had any since. denies chills or sweats Denies shortness of breath, difficulty breathing, chest pain, palpitations, chest pressure. Denies breast pain. Denies dysuria. Denies headache or changes in vision Review of Systems All systems reviewed & are unremarkable except as noted in HPI & below Physical Exam <Lexy Ewing MD - Last Filed: 05/06/21 08:16> General: Alert, oriented. No acute distress. Cardiac: Regular rate and rhythm, no murmurs/rubs/gallops. Respiratory: Clear to auscultation bilaterally a/p, no wheezes/rales/rhonchi. No increased work of breathing. Symmetrical chest rise. No respiratory distress. Abdomen: Soft, nontender, nondistended. Bowel sounds present. Uterus: Uterine fundus firm, palpable 1 cm below umbilicus. Lower Extremities: No lower extremity edema or swelling. No deep calf pain. Zaki's negative bilaterally.. Results & Data ([facility]) <Lexy Ewing MD - Last Filed: 05/06/21 08:16> Vital Signs (Past 12 Hours) Vital Signs Temp Pulse Resp BP Pulse Ox Pulse Ox 05/06/21 05:57 71 97 05/06/21 05:52 71 97 05/06/21 05:47 72 96 05/06/21 05:42 72 96 05/06/21 05:37 72 96 05/06/21 05:32 77 100 05/06/21 05:27 84 99 05/06/21 05:22 76 97 05/06/21 05:17 77 97 05/06/21 05:12 78 97 05/06/21 05:07 77 96 05/06/21 05:02 80 97 05/06/21 05:01 74 88/60 L 05/06/21 04:57 87 97 05/06/21 04:52 84 98 05/06/21 04:47 82 99 05/06/21 04:42 86 99 05/06/21 04:37 84 99 05/06/21 04:32 84 99 05/06/21 04:27 85 100 05/06/21 04:22 85 100 05/06/21 04:17 85 100 05/06/21 04:12 88 100 05/06/21 04:07 81 100 05/06/21 04:02 80 97 05/06/21 04:00 36.7 C 16 05/06/21 03:58 70 96/60 L 05/06/21 03:57 75 16 96 05/06/21 03:52 77 96 05/06/21 03:47 73 97 05/06/21 03:42 79 96 05/06/21 03:37 77 96 05/06/21 03:32 76 96 05/06/21 03:28 74 83/53 L 05/06/21 03:27 79 96 05/06/21 03:22 78 96 05/06/21 03:17 82 97 05/06/21 03:12 86 99 05/06/21 03:10 18 05/06/21 03:07 78 100 05/06/21 03:02 97 H 99 05/06/21 02:58 73 100/63 05/06/21 02:57 84 96 05/06/21 02:52 81 96 05/06/21 02:47 84 97 05/06/21 02:42 78 96 05/06/21 02:37 81 96 05/06/21 02:32 81 96 05/06/21 02:28 77 93/63 L 05/06/21 02:27 83 97 05/06/21 02:22 82 96 05/06/21 02:17 79 97 05/06/21 02:12 96 H 100 05/06/21 02:07 88 100 05/06/21 02:02 97 H 100 05/06/21 02:00 36.7 C 16 05/06/21 01:57 88 95/66 L 05/06/21 01:56 94 H 97 05/06/21 01:51 91 H 99 05/06/21 01:46 88 98 05/06/21 01:41 88 93/60 L 97 05/06/21 01:36 90 99 05/06/21 01:31 89 97 05/06/21 01:26 91 H 97 05/06/21 01:21 92 H 99 05/06/21 01:16 96 H 99 05/06/21 01:13 36.7 C 18 05/06/21 01:11 93 H 94/57 L 98 05/06/21 01:06 95 H 98 05/06/21 01:01 92 H 99 05/06/21 00:56 95 H 100 05/06/21 00:51 93 H 100 05/06/21 00:46 105 H 100 05/06/21 00:43 36.6 C 97 H 16 95/66 L 100 05/06/21 00:41 99 H 98 05/06/21 00:38 92 H 91/60 L 05/06/21 00:36 97 H 97 05/06/21 00:33 93 H 96/58 L 05/06/21 00:31 111 H 100 05/06/21 00:30 105 H 98/56 L 05/06/21 00:26 105 H 100 05/06/21 00:23 93 H 88/59 L 05/06/21 00:21 96 H 100 05/06/21 00:18 98 H 89/60 L 05/06/21 00:16 97 H 99 05/06/21 00:14 103 H 89/60 L 05/06/21 00:13 36.7 C 98 H 18 94/57 L 100 05/06/21 00:11 105 H 99 05/06/21 00:06 105 H 98 05/06/21 00:01 110 H 106/73 98 05/06/21 00:00 36.7 C 103 H 18 106/73 99 05/05/21 23:56 106 H 97 05/05/21 23:51 110 H 97 05/05/21 23:46 118 H 95 05/05/21 23:42 36.7 C 105 H 18 87/54 L 96 05/05/21 23:41 102 H 97 05/05/21 23:37 109 H 89/54 L 05/05/21 23:36 111 H 98 05/05/21 23:31 122 H 97 05/05/21 23:30 36.7 C 105 H 16 98/58 L 05/05/21 23:26 107 H 98 05/05/21 23:21 112 H 98 05/05/21 23:20 37.0 C 16 05/05/21 23:16 104 H 99 05/05/21 23:11 117 H 100 05/05/21 23:08 107 H 89/51 L 05/05/21 23:06 116 H 100 05/05/21 23:01 119 H 100 05/05/21 23:00 16 05/05/21 22:56 102 H 97 05/05/21 22:51 98 H 97 05/05/21 22:46 103 H 96 05/05/21 22:41 106 H 99 05/05/21 22:37 108 H 107/56 L 05/05/21 22:36 101 H 100 05/05/21 22:31 108 H 98 05/05/21 22:26 105 H 98 05/05/21 22:21 110 H 86/55 L 99 05/05/21 22:20 37.9 C H 107 H 16 86/55 L 97 05/05/21 22:16 103 H 97 05/05/21 22:15 106 H 82/56 L 05/05/21 22:14 116 H 79/50 L 05/05/21 22:11 110 H 99 05/05/21 22:06 110 H 86/62 L 98 05/05/21 22:01 120 H 97 05/05/21 21:56 115 H 97 05/05/21 21:52 114 H 100/71 05/05/21 21:51 109 H 96 05/05/21 21:50 38.4 C H 114 H 18 100/71 97 05/05/21 21:46 123 H 100 05/05/21 21:41 121 H 98 05/05/21 21:36 112 H 95/61 L 97 05/05/21 21:35 37.7 C H 112 H 20 95/61 L 97 05/05/21 21:32 97 05/05/21 21:31 109 H 96 05/05/21 21:28 120 H 102/63 05/05/21 21:26 114 H 96 05/05/21 21:21 118 H 97 05/05/21 21:16 117 H 97 05/05/21 21:14 38.3 C H 116 H 20 97/67 L 97 05/05/21 21:11 112 H 98 05/05/21 21:10 113 H 97/67 L 05/05/21 21:06 114 H 97 05/05/21 21:05 36.3 C L 05/05/21 21:01 124 H 99 05/05/21 20:58 118 H 98/68 L 05/05/21 20:56 121 H 98 05/05/21 20:51 122 H 96 05/05/21 20:46 122 H 97 05/05/21 20:41 118 H 97 05/05/21 20:36 121 H 97 05/05/21 20:31 123 H 96 05/05/21 20:28 129 H 97/63 L 05/05/21 20:26 113 H 99 05/05/21 20:21 127 H 97 05/05/21 20:16 129 H 96 05/05/21 20:11 126 H 100 05/05/21 20:06 127 H 100 05/05/21 20:01 127 H 98 05/05/21 20:00 16 05/05/21 19:56 121 H 98 05/05/21 19:51 118 H 100 05/05/21 19:46 128 H 99 05/05/21 19:42 120 H 92 05/05/21 19:41 118 H 97 05/05/21 19:36 129 H 96 05/05/21 19:35 128 H 93 05/05/21 19:31 114 H 99 05/05/21 19:28 130 H 108/70 05/05/21 19:26 128 H 99 05/05/21 19:21 131 H 97 05/05/21 19:16 124 H 99 05/05/21 19:11 117 H 98 05/05/21 19:10 22 05/05/21 19:06 108 H 96 05/05/21 19:01 115 H 97 05/05/21 18:58 37.2 C 05/05/21 18:56 113 H 98 05/05/21 18:46 109 H 114/76 05/05/21 18:40 20 05/05/21 18:31 108 H 109/63 05/05/21 18:19 114 H 120/56 L <Sangeetha Jennings MD - Last Filed: 05/06/21 08:23> Co-Signing Physician Notes Resident Physician Supervision Note: I interviewed and examined the patient. Discussed with Dr. Jiménezulate and agree with findings and plan as documented in the note. Any exceptions or clarifications are listed here: Patient is stable this morning after complicated by shoulder dystocia / chorio and 2.5L actual measured PPH due to atony, managed with Pitocin + Cytotec + Hemabate + Fisher + Bakri + 2u RBC. Bleeding has slowed to minimal. Hgb this morning 9.7 g/dL, plts improved to 123. CBC tomorrow or sooner prn. Vitals improved with patient at her baseline BP but tachycardia now resolved. Pain much better controlled and smiling patient this morning again. Eager for regular diet which I agree with, no longer feel we are at significant risk of needing to proceed with emergency surgical management. We will remove Bakri over four hours (120cc just now removed), and once it's out, fisher / Unasyn / Epidural can discontinue and she will move to room. WBC appropriate and should continue to improve. Fevers have ceased and were likely somewhat prolonged due to misoprostol, so I feel it's OK to stop Unasyn without waiting for 24 hours after last fever, though will s/o to today's coverage and they may decide to prolong tx. also undergoing infection workup in nursery at this time which has limited maternal/ bonding. She is looking forward to visiting with her kids this afternoon during visiting hours, and hopes to visit with as soon as able to be out of bed. Documented By: Sangeetha Jennings MD, FACOG Resident Activity Tracking <Lexy Ewing MD - Last Filed: 05/06/21 08:16> Resident Involvement: Resident Care Provided Care Provided: OB Delivery
[2021-05-06] MEDS: oxyCODONE/ACETAMINOPHEN 5mg/325mg TAB PO PRN (06:43)
[2021-05-06 06:55] LABS: Hematocrit (blood only) 28.8 % (37-47); Hemoglobin 9.7 g/dL (12.0-16.0); Mean Corpuscular Hgb Conc 33.7 g/dL (32-36); Mean Platelet Volume 10.2 fL (7.4-10.4); Platelet Count 123 K/uL (130-400); RDW Coefficient of Variation 14.7 % (11.5-14.5); RDW Standard Deviation 49.5 fL (36.4-46.3); Red Blood Count 3.13 M/uL (4.2-5.4)
[2021-05-06] MEDS: PRENATAL VITAMIN 1 TAB PO SCH (08:48)
[2021-05-06] MEDS: DOCUSATE SODIUM 100 MG CAP PO SCH ×2 (08:48→20:13)
--- NOTE | 2021-05-06 12:07 | Anesthesia Procedure Note ---
Date of Service May 06, 2021 Anesthesia Post Epidural Note Vital Signs Vital Signs: Temp Pulse Resp BP Pulse Ox 36.9 C 74 20 82/49 L 97 05/06/21 07:01 05/06/21 12:02 05/06/21 08:00 05/06/21 12:01 05/06/21 12:02 Pain Intensity Bilateral Perineal: Pain Intensity: 3 Notes Mental Status: alert / awake / arousable Nausea / Vomiting: adequately controlled Pain: adequately controlled Airway Patency, RR, SpO2: stable & adequate BP & HR: stable & adequate Hydration State: stable & adequate Neuraxial Anesthesia: was administered and sensory block is resolving Anesthetic Complications: no major complications apparent and Pt Satisfied with anesthetic care Epidural: Removed without complications and With tip intact
[2021-05-07] MEDS: IBUPROFEN 600 MG TAB PO PRN ×4 (03:47→18:03)
[2021-05-07 06:13] LABS: Hematocrit (blood only) 24.9 % (37-47); Hemoglobin 8.6 g/dL (12.0-16.0)
--- NOTE | 2021-05-07 08:32 | Obstetrical Progress Note ---
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 hemorrhage her hemoglobin is 8.6 this morning she is 48 hours from delivery her baby will need to stay but I think she meets criteria for discharge as she is ambulating well [facility] Subjective Ambulation: ambulating normally Voiding: no voiding problems Passing Gas:: Yes Diet Tolerance:: regular diet Lochia:: Small Physical Exam ext neg Results & Data ([facility]) Vital Signs (Past 12 Hours) Vital Signs Temp Pulse Resp BP Pulse Ox 05/07/21 03:35 98.1 F 65 16 91/53 L 98 05/06/21 23:15 97.7 F 64 20 95/62 L 99
[2021-05-07] MEDS: DOCUSATE SODIUM 100 MG CAP PO SCH (08:59)
[2021-05-07] MEDS: PRENATAL VITAMIN 1 TAB PO SCH (08:59)
== END 2021-05-07 18:08 | disposition home or self-care (01) | DRG 768 ==
LOC: 4S1 07:09 → 4S2 05-06 15:15